=== PATIENT | female | born 1970 | race Asian ===

== ENCOUNTER 2017-05-08 08:10 | Day surgery (SDC) | payer BC ==
[~2017-05-08] VITALS: Ht 139.7 cm; Wt 47.6 kg
[~2017-05-08 08:10] MED LIST: CEFAZOLIN 1 GM IVPB PREMIX 50 ML IV ONE
[2017-05-08] MEDS ORDERED: CEFAZOLIN 1 GM IVPB PREMIX 50 ML IV ONE (08:21)
[2017-05-08 08:24] LABS: HCG,QUAL RESULT NEGATIVE (NEGATIVE)
[2017-05-08] MEDS ORDERED: NS IRRIG SOLN 1000 ML IR ONE (09:55)
[2017-05-08] MEDS ORDERED: LR 1,000 ML IV.SOLN IV ONE (09:55)
[2017-05-08] MEDS ORDERED: ONDANSETRON HCL 4 MG/2 ML VIAL IVP ONE (09:55)
[2017-05-08] MEDS ORDERED: NS 1000 ML BAG IV ONE (09:55)
[2017-05-08] MEDS ORDERED: FUROSEMIDE 100 MG/10 ML VIAL IV ONE (09:55)
[2017-05-08] MEDS ORDERED: PROPOFOL 200MG/ 20ML VIAL (DIPRIVAN) IV ONE (09:55)
[2017-05-08] MEDS ORDERED: DEXAMETHASONE SOD PHOSPHATE 4 MG/ML VIAL IVP ONE (09:55)
[2017-05-08] MEDS ORDERED: SEVOFLURANE 15 MIN GAS INH ONE (09:55)
[2017-05-08] MEDS ORDERED: KETOROLAC TROMETHAMINE 30 MG VIAL IVP ONE ×2 (09:55→16:00)
[2017-05-08] MEDS ORDERED: LIDOCAINE/EPI 2% 1:100000 20 ML VIAL INJ ONE (09:55)
[2017-05-08] MEDS ORDERED: DEXTROSE 50% JECT 50 ML DISP.SYRIN IVP ONE (09:55)
[2017-05-08] MEDS ORDERED: fentaNYL CITRATE 250 MCG/5 ML AMP IV ONE (09:55)
[2017-05-08] MEDS ORDERED: MIDAZOLAM HCL 5 MG/5 ML VIAL IVP ONE (09:55)
[2017-05-08] MEDS ORDERED: ROCURONIUM BROMIDE 10 MG/ML (ZEMURON) IV ONE (09:55)
[2017-05-08] MEDS ORDERED: fentaNYL CITRATE/PF 100 MCG/2 ML AMP IVP ONE (09:55)
[2017-05-08] MEDS ORDERED: BUPIVACAINE /PF 0.5% 30 ML VIAL INJ ONE (09:55)
[2017-05-08] MEDS ORDERED: LR 1,000 ML IV SCH (11:36)
[2017-05-08] MEDS ORDERED: MORPHINE 4 MG/ML INJ. SYRINGE IVP PRN (11:45)
[2017-05-08] MEDS ORDERED: MEPERIDINE HCL/PF 25 MG/ML DISP.SYRIN IVP PRN (11:45)
[2017-05-08] MEDS ORDERED: HYDROcodone/ACETAMIN 5-325 MG TAB (NORCO/ VICODIN) PO PRN (13:00)
[2017-05-08] MEDS ORDERED: OXYCODONE/ACETAMINOPHEN 5-325 TABLET PO PRN ×2 (13:00)
[2017-05-08] MEDS ORDERED: ONDANSETRON HCL 4 MG/2 ML VIAL IVP PRN (13:00)
[2017-05-08 14:40] VITALS: BP_SYST 119
== END 2017-05-08 16:50 | disposition home or self-care (01) ==
LOC: SDS 08:10 → SMU 08:10 → SDS 16:50
PROVIDERS: ATTEND Specialist
DX: D25.9 Leiomyoma of uterus, unspecified (principal); N80.0 Endometriosis of uterus; M41.9 Scoliosis, unspecified; R05 Cough; Z79.899 Other long term (current) drug therapy
CPT/HCPCS: 71046-TC; 84703; 88307; 93005; C1727; E0190; J0690; J1100; J1885; J1940; J2250; J2405; J2704; J3010; J3490; J7030; J7120

== ENCOUNTER 2018-02-22 11:04 | Emergency (ER) | payer BC ==
[~2018-02-22] VITALS: Ht 139.7 cm; Wt 46.7 kg
[2018-02-22 11:09] VITALS: BP_SYST 136
--- NOTE | 2018-02-22 11:14 | NUR ---
Placed in room 3.
[2018-02-22] MEDS ORDERED: NACL 0.9% 1,000 ML IV ONE (11:17)
[2018-02-22] MEDS ORDERED: MAG HYDROX/AL HYDROX/SIMETH 30 ML, BELLADONNA ALKALOIDS/PHENOBARB 10 ML, LIDOCAINE VISC... PO ONE ×3 (11:30)
--- NOTE | 2018-02-22 11:37 | NUR ---
# 20 gauge angiocath placed to RAC. Use of asceptic technique. Opsite placed over site. Blood return noted. Flushed with 10 cc of normal saline. No evidence of infiltration noted. Patient tolerated well.
--- NOTE | 2018-02-22 11:37 | NUR ---
Patient is awake, alert, and oriented x4. She came from home and is complaining of abdominal pain. She reports a medical history of hysterectomy [address] Denis Ernst.
--- NOTE | 2018-02-22 11:38 | NUR ---
Patient spilled urine in bag. Informed her that we need another sample.
[2018-02-22 11:51] LABS: CALCIUM 9.4 mg/dL (8.4-11.0); CREATININE 0.62 mg/dL (0.55-1.30); POTASSIUM 3.7 mmol/L (3.5-5.1); WHITE BLOOD COUNT (AUTO) 6.6 K/uL (4.8-10.8)
[2018-02-22 11:52] LABS: EOSINOPHILS # (AUTO) 0.2 K/uL (0.0-0.4); HEMATOCRIT 41.7 % (36-48); LYMPHOCYTES # (AUTO) 1.7 K/uL (1.0-5.5); MEAN CORPUSCULAR HEMOGLOBIN 30 pg (27-31); MEAN CORPUSCULAR HGB CONC 34 % (32-36); MEAN CORPUSCULAR VOLUME 88 fL (79.0-98.0); MONOCYTES # (AUTO) 0.5 K/uL (0.0-1.0); NEUTROPHILS # (AUTO) 4.2 K/uL (1.8-7.7); PLATELET COUNT (AUTO) 363 K/uL (130-430); RED BLOOD CELL COUNT(AUTO) 4.76 MIL/uL (4.2-6.2); RED CELL DISTRIBUTION WIDTH 11.8 % (9.0-15.0)
--- NOTE | 2018-02-22 11:52 | NUR ---
ER Dr. Whitaker at bedside examining patient.
[2018-02-22 11:53] LABS: BASOPHILS % (AUTO) 0.3 % (0.0-2.0); MONOCYTES % (AUTO) 7.9 % (1.7-9.3); NEUTROPHILS % (AUTO) 62.8 % (40.0-70.0)
[2018-02-22 11:57] LABS: ALBUMIN 3.7 g/dL (3.4-4.8); TOTAL BILIRUBIN 0.5 mg/dL (0.0-1.0)
[2018-02-22 11:58] LABS: INR 0.9 (0.8-1.2); PROTHROMBIN TIME 9.7 SECS (9.5-12.5)
[2018-02-22 12:14] LABS: BILIRUBIN,URINE NEGATIVE (NEGATIVE); BLOOD, URINE NEGATIVE (NEGATIVE); GLUCOSE,URINE NEGATIVE (NEGATIVE); KETONES,URINE NEGATIVE (NEGATIVE); LEUKOCYTE ESTERASE ,URINE NEGATIVE (NEGATIVE); NITRITE, URINE NEGATIVE (NEGATIVE); PROTEIN URINE NEGATIVE (NEGATIVE); UROBILINOGEN,URINE 0.2 (0.2-1.0)
[2018-02-22 12:15] LABS: CLARITY/URINE SLIGHTLY HAZY (CLEAR); COLOR,URINE YELLOW (YELLOW)
[2018-02-22 13:20] VITALS: BP_SYST 128
--- NOTE | 2018-02-22 13:20 | NUR ---
Patient given written and verbal discharge instructions and verbalizes understanding. ER MD discussed with patient the results and treatment provided. Patient in stable condition. ID arm band removed. IV catheter removed intact and dressing applied, no active bleeding. Rx of colace, tylenol, fleet enema given. Patient educated on pain management and to follow up with PMD. Pain Scale 0/10. Opportunity for questions provided and answered. Medication side effect fact sheet provided.
== END 2018-02-22 13:20 | disposition home or self-care (01) ==
LOC: SED 11:04
DX: K59.00 Constipation, unspecified (principal); R03.0 Elevated blood-pressure reading, without diagnosis of hypertension; Z90.710 Acquired absence of both cervix and uterus
CPT/HCPCS: 36415; 80053; 81003; 83690; 85025; 85610; 85730; 99283; J2001; J7030